=== PATIENT | female | born 1995 | race Caucasian/White ===

== ENCOUNTER 2019-11-01 19:48 | Emergency (ER) | payer OTHER ==
[2019-11-01] MEDS ORDERED: BUFFERED LIDOCAINE 10 ML SYRINGE SUBQ STA (20:14)
[2019-11-01] MEDS ORDERED: oxyCODONE/ACET 5/325 Prepack 4 PO STA (20:30)
--- NOTE | 2019-11-01 20:32 | ED Physician Documentation ---
PD HPI UPPER EXT INJURY - Stated complaint Stated Complaint: RT THUMB LAC - Chief complaint Chief Complaint: Laceration - History obtained from History obtained from: Patient (24-year-old woman who is up-to-date on tetanus was cutting with a mandolin slicer at home just prior to arrival and cut her right thumb. No other injuries. Pain is moderate to severe.) Review of Systems Constitutional: reports: Reviewed and negative Cardiac: reports: Reviewed and negative Respiratory: reports: Reviewed and negative PD PAST MEDICAL HISTORY - Present Medications Home Medications: Ambulatory Orders Medication Instructions Recorded Confirmed Oxycodone HCl/Acetaminophen 1 - 2 each PO Q6H PRN #14 tablet 11/01/19 [Percocet 5-325 mg Tablet] - Allergies Allergies/Adverse Reactions: Allergies Allergy/AdvReac Type Severity Reaction Status Date / Time hydrocodone Allergy Rash Verified 11/01/19 20:05 PD ED PE NORMAL - Vitals Vital signs reviewed: Yes - General General: Alert and oriented X 3, No acute distress - Extremities Extremities: Other (On the right thumb there is actually a fairly wide swath of tissue loss measuring about 1 cm centimeters on the anterolateral part of the thumb. Not deep enough to affect deep structures. It was irrigated and dressed with Surgicel and tube gauze during exam.) - Neuro Neuro: Alert and oriented X 3, Normal speech Results - Vitals Vitals: Vital Signs - 24 hr 11/01/19 20:00 Temperature 36.2 C L Heart Rate 95 Respiratory 16 Rate Blood Pressure 132/84 H O2 Saturation 100 Oxygen O2 Source Room air Departure - Departure Disposition: 01 Home, Self Care Clinical Impression: Avulsion of skin of finger Qualifiers: Encounter type: initial encounter Qualified Code(s): S61.209A - Unspecified open wound of unspecified finger without damage to nail, initial encounter Condition: Good Record reviewed to determine appropriate education?: Yes Instructions: ED Avulsion Dermal Prescriptions: Oxycodone HCl/Acetaminophen [Percocet 5-325 mg Tablet] 1 - 2 each PO Q6H PRN #14 tablet PRN Reason: pain Comments: The size of the tissue loss suggest that she may need a skin graft. The closest hand surgeon is in [place], His name is Dr. Tono Monteiro. Call his office first thing Monday at [phone] to arrange follow-up. Keep the current dressing on for 48 hours. After that you may briefly remove it to wash with soap and water. At the drugstore you should buy Xeroform gauze to place on it lightly after that and then wrap it loosely, not tight with gauze. Keep it elevated.
[2019-11-01 20:43] VITALS: BP 130/80
== END 2019-11-01 20:46 | disposition home or self-care (01) ==
LOC: ED 19:48
DX: S61.011A Laceration without foreign body of right thumb without damage to nail, initial encounter (principal); W27.4XXA Contact with kitchen utensil, initial encounter; Y93.G1 Activity, food preparation and clean up; Y92.000 Kitchen of unspecified non-institutional (private) residence as the place of occurrence of the external cause
CPT/HCPCS: 99283